=== PATIENT | male | born 1990 | race Caucasian/White ===

== ENCOUNTER → 2016-09-01 | Outpatient (CLI) | payer BC ==
--- NOTE | 2016-09-02 06:46 | PAP/PSG TECHNICIAN REPORT ---
[facility] Engineering Program Manager Polysomnogram Report Study name: None Report date: 09/02/2016 Study date: 09/01/2016 Referring Physician: Kristel JORDAN M.D. Name: EARLINE SOMMER Interpreting Physician: Sixto Jordan M.D. Date of : 1990 Engineering Program Manager: Gabi Sykes RPSGT. Sex: Male Age: 26 StudyType: PSG PAP Weight: 285 lbs Height: 26 years, Height 5' 8" BMI: 43.33 Medications: MELATONIN Patient History 26 yr-old male here for a new CPAP treatment study. HE was found to be positive for RADHA via a home sleep study. His AHI was 32.7. He chose a Quattro Air full face mask size medium from [employer]. The test was started on room air and 4 CMH2O. ETCO2 testing was not utilized during this study. Room 3 He took melatonin (dose unknown) for the study. Parameters Monitored NPSG: E1-M2, E2-M1, Fp1-M2, Fp2-M1, F3-M2, F4-M2, F4-M1, C3-M2, C4-M2, C4-M1, O1-M2, O2-M2, O2-M1, T3-M2, T4-M1, P3-M2, P4-M1, CHIN1, CHIN2, HR, EKG, Legs, PFLOW, SNOR, FLOW, CFLOW, Tidal Volume, THOR, ABDO, SpO2, PLTH, CPRESS, ETCO2 Wave, ETCO2, pH Sleep Architecture Sleep Stages Time at Lights Off 10:25:43 PM STAGES Time (min.) TST (%) Time at Lights On 5:57:13 AM Wake 38.0 -- Total Recording Time (TRT) 451.50 min. N1 44.0 11 Total Sleep Period (TSP) 434.0 min. N2 239.5 58 Total Sleep Time (TST) 413.5min. N3 0.5 0 Awake Time 38.0 min. REM 129.5 31 Wake after Sleep Onset 20.5 min. Sleep Efficiency (SE) 92 % Sleep Onset Latency (BILLIE) 17.5 min. Number of Stage 1 Shifts None Awakenings 12 Stage Changes 74 Number of REM periods 5 REM 129.5 31 REM Latency 94.0 min. NREM 284.0 69 Body Position Analysis Supine Right Left Side Prone Vertical Total Sleep Time (min.) 262.2 174.5 0.0 174.45 0.0 0.0 Total Sleep Time (%) 58% 42% 0% 42 0% N/A% Total Sleep Time REM (min.) 86.0 43.5 0.0 None 0.0 0.0 Total Sleep Time NREM (min.) 153.0 131.0 0.0 None 0.0 0.0 Intermittent Wake (min.) 23.2 14.8 0.0 None 0.0 0.0 Total Sleep Period (%) 57% None None None None None Arousals Myoclonus (PLM) * Events Count Index Events Count Index Spontaneous 17 2 Events Awake (PLMW) 49 77.4 Respiratory 8 1.2 Events Asleep w/ Arousal (PLMA) 19 2.8 PLM 19 3 Events Asleep w/o Arousal (PLMS) 164 23.8 Snoring 2 0 Total Asleep 183 26.6 Total 46 7 Total 232 31 Respiratory Analysis * CA OA MA CH H RERA Total Count 0 5 0 0 50 6 55 Index 0.0 0.7 0.0 0 7.3 1 8.9 Mean Duration 0.0 16.4 0.0 0.00 23.1 19.0 22.2 Longest Duration 0.0 25.6 0.0 0.00 0.0 21.2 54.7 Respiratory Event Summary Total Supine ~Supine Right Left Prone REM NREM Apneas Count 5 5 0 0 N/A N/A 4 1 Index 0.7 1 0 0.0 N/A N/A 2 0 Hypopneas (4% Desat) Count 50 48 2 2 N/A N/A 40 10 Index 7.3 12.0 1 0.7 N/A N/A 18.5 2.1 Apneas & All Hypopneas Count 55 53 2 2 N/A N/A 44 11 Index 8.0 13 1 1 N/A N/A 20.4 2.3 Respiratory Events (Concrete Vibrator Operator+All Hyp+RERA) Count 55 58 3 3 N/A N/A 44 11 Index 8.9 15 1 1.0 N/A N/A 20.8 3.4 Respiratory Related Arousal Count 8 58 1 1 N/A N/A 3 5 Index 1.2 2 0 0 N/A N/A 1 1 Snoring Analysis Supine Right Left Prone REM NREM Total Snore duration 54.3 min Snores count 1,834 555 N/A N/A 280 2,109 2,389 Snore mean duration 1.4 Sec Snores index 460 191 N/A N/A 129.7 445.6 346.7 TST with snoring (%) 13.1% Desaturation Event Summary: Minimum %SpO2 Event Count Mean/Min/Max Duration(sec.) Desaturation Index % Time In Bed > 90 88 27.3 / 6.5 / 60.0 12.2 96.1 86 - 90 7 15.8 / 8.0 / 25.8 39.8 2.4 81 - 85 2 11.0 / 10.8 / 11.3 23.5 1.1 76 - 80 0 N/A 0.0 0.3 71 - 75 0 N/A 0.0 0.1 66 - 70 0 N/A 0.0 0.0 61 - 65 0 N/A 0.0 0.0 56 - 60 0 N/A 0.0 0.0 51 - 55 0 N/A 0.0 0.0 < 50 0 N/A 0.0 0.0 Total REM NREM Awake <50% 0.0 min. 0.0 min. 0.0 min. 0.0 min. 51 - 60% 0.0 min. 0.0 min. 0.0 min. 0.0 min. 61 - 70% 0.0 min. 0.0 min. 0.0 min. 0.0 min. 71 - 80% 1.8 min. 1.4 min. 0.3 min. 0.1 min. 81 - 90% 15.7 min. 13.0 min. 1.7 min. 0.9 min. 91 - 100% 431.1 min. 115.0 min. 281.5 min. 34.6 min. Average 94 94 94 95 Minimum SpO2 72 72 76 80 Desaturation Event Index 12.0 24.1 6.1 15.8 # Desat. Events below 89% 34 29 2 3 Time(%) with Saturation below 89% 2.5 2.2 0.1 0.1 Time(min.) with Saturation below 89% 11.0 9.7 0.6 0.6 Time (mins) REM (mins) NREM (mins) % of TST SpO2 Below 90% 47 40 N7 3.0 SpO2 Below 88% 14 0 0 2 Heart Rate Analysis Min (bpm) Max (bpm) Average (bpm) Awake 35 145 82 NREM 60 106 77 REM 59 103 72 Overall 59 106 75 Supplemental O2 Values Minimum O2 level: None Value Start Time End Time Engineering Program Manager Comments Mr. Sommer slept in the right and supine positions. No cardiac arrhythmias were noted. PLMs were noted. No bruxism noted. CPAP was initiated at +4 CMH2O and up-titrated to a level of +12 CMH2O, Cflex 2 which nearly eliminated all respiratory events and snoring. A Quattro Air full face mask size medium from [employer] was used during titration He did not wake up to use the restroom during the night. Mr. Sommer stated that he slept about the same as usual. The final report will be interpreted and signed by a sleep physician. The completed physician report will then be placed in the patient medical record. Therapy Event: Therapy (cm H20) 4 5 6 8 10 12 Total Time at Pressure (min.) 41.4 65.4 14.5 116.6 188.3 25.4 TST at Pressure (min.) 23.9 64.4 14.5 114.1 171.3 25.4 # Periods 1 1 1 1 1 1 Sleep Onset (min.) 17.5 0.0 0.0 0.0 0.0 0.0 REM Onset (min.) N/A N/A 4.7 0.0 35.2 0.0 Sleep Efficiency % 57 98 100 97 91 100 Wakefulness (%) 42.3 1.5 0.0 2.1 9.0 0.0 Wakefulness (min.) 17.5 1.0 0.0 2.5 17.0 0.0 NREM 1 (%) 36.2 3.8 0.0 12.9 6.1 0.0 NREM 1 (min.) 15.0 2.5 0.0 15.0 11.5 0.0 NREM 2 (%) 21.5 94.6 32.7 64.6 45.0 15.8 NREM 2 (min.) 8.9 61.9 4.7 75.3 84.7 4.0 NREM 3 (%) 0.0 0.0 0.0 0.4 0.0 0.0 NREM 3 (min.) 0.0 0.0 0.0 0.5 0.0 0.0 REM (%) 0.0 0.0 67.3 19.9 39.9 84.2 REM (min.) 0.0 0.0 9.8 23.2 75.1 21.4 # Arousals 9 6 0 18 11 2 Arousal Index 22.6 5.6 0.0 9.5 3.9 4.7 # Snore 121 808 124 1,146 150 40 Snore Index 303.7 753.3 513.5 602.8 52.5 94.6 AHI 0.0 6.5 45.5 13.1 3.5 4.7 AHI Supine N/A 10.2 45.5 13.1 10.8 4.7 AHI Non-Supine 0.0 3.4 N/A N/A 0.0 N/A NREM AHI 0.0 6.5 12.7 1.3 0.6 0.0 REM AHI N/A N/A 61.5 59.4 7.2 5.6 RDI 0.0 7.5 45.5 15.3 3.9 4.7 # Obstructive 0 0 1 1 3 0 # Central Ap 0 0 0 0 0 0 # Mixed 0 0 0 0 0 0 # Hypopneas 0 7 10 24 7 2 RERAS 0 1 0 4 1 0 Total Respiratory Events 0 8 11 29 11 2 Time Below SpO2 89.00% (min.) 0.0 0.0 4.0 6.2 0.2 0.0 Mean NREM SpO2 (%) 94 93 91 94 95 94 Mean REM SpO2 (%) N/A N/A 89 91 95 94 Mean Sleep SpO2 (%) 94 93 90 93 95 94 Min NREM SpO2 (%) 92 89 76 91 87 93 Min REM SpO2 (%) N/A N/A 72 79 88 90 Position Supine (min.) 0.0 29.3 14.5 114.1 55.8 25.4 Position Non-supine (min.) 23.9 35.0 0.0 0.0 115.5 0.0 LM Index Sleep 87.8 50.3 0.0 15.3 21.7 7.1 LM Index NREM 87.8 50.3 0.0 17.8 23.1 0.0 LM Index REM N/A N/A 0.0 5.2 20.0 8.4 Mean Heart Rate (bpm) 87 84 76 75 71 73 Min Heart Rate (bpm) 77 71 66 62 59 64
--- NOTE | 2016-09-29 17:30 | Sleep Study ---
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 He was found to have and an AHI of 32.7 on a home sleep test. He has chosen to use a medium Quattro Air fullface mask for his titration. [place] Sleepiness Scale score on the evening of the study is not recorded , BMI is 43.33. Mr. Valladares total sleep period time was 434 minutes. Total sleep time was 413.5 minutes. Sleep efficiency was 92%. Latency to sleep onset was 17.5 minutes with weight after sleep onset of 20.5 minutes. Total non-REM sleep time was 284 minutes. He spent 11% of that time in N1 sleep, 58% in N2 sleep and had no time and 3 cp on this test. Rem latency was 94 minutes. Total REM sleep time was 129.5 minutes or 31% of total sleep time. There were 46 cortical arousals from sleep. 8 of these arousals were due to respiratory events 19 were due to periodic limb movements of sleep and 2 were due to snoring. There were 17 spontaneous arousals. There were 18 PLMS noted during this test. Limb movement index was 26.6, with arousal index was 2.8. There were 5 obstructive apneas no mixed apnea or central apnea on this test. There were 50 hypopnea. Apnea-hypopnea index was 8.0. This is consistent with mild sleep apnea. Supine AHI was 13 REM AHI was 20.4. There are 2389 snoring events recorded. Total sleep time with snoring was 13.1%. Mean saturation was 94% with desaturations to 72%. Saturations were less than 89% for 11 minutes of this titration. There is no cardiac ectopy noted on this test. Heart rates ranged from a low of 59 beats per minute to a high of 106 beats per minute. As stated above, this was a CPAP titration study. This patient was titrated from a CPAP pressure for to CPAP pressure of 12 over the course of the night. He was observed on a pressure of 12 for 25.4 minutes of sleep time. 21.4 of these minutes was spent in supine REM sleep. AHI and RDI of this pressure were both 4.7. There were no desaturations less than 89%. Impression and plan : Successful CPAP titration study in this patient who appears to do well on CPAP at a pressure of 12. I would recommend that this be started in the outpatient setting and then a download from his machine reviewed in 1 month both to check his compliance as well as hi AHI. Sixto Jordan MD
== END | disposition home or self-care (01) ==
LOC: C.NEUR 21:00
PROVIDERS: ATTEND Family Medicine
DX: G47.33 Obstructive sleep apnea (adult) (pediatric) (principal); G47.34 Idiopathic sleep related nonobstructive alveolar hypoventilation